=== PATIENT | male | born 1970 ===

== ENCOUNTER 2020-11-04 09:38 | Day surgery (SDC) | payer BC ==
[~2020-11-04] VITALS: Ht 172.7 cm; Wt 82.0 kg
--- NOTE | 2020-11-04 10:09 | NUR ---
11/04/20 David9 Emily Reid 1 TRY RIGHT HAND BLEW 2 TRY RIGHT UPPER FOREARM NO FLASH
[2020-11-10 09:32] LABS: Performing Lab VERACYTE; Test Name FNA
== END 2020-11-04 11:19 | disposition home or self-care (01) ==
LOC: ORSCSDS 09:38
PROVIDERS: Surgery
PROC: 0DBN8ZX Excision of Sigmoid Colon, Via Natural or Artificial Opening Endoscopic, Diagnostic (ICD-10-PCS; principal; 2020-11-04 10:45)
PROC: 0DBK8ZX Excision of Ascending Colon, Via Natural or Artificial Opening Endoscopic, Diagnostic (ICD-10-PCS; principal; 2020-11-04 10:45)
DX: Z12.11 Encounter for screening for malignant neoplasm of colon (principal); D12.2 Benign neoplasm of ascending colon; D12.5 Benign neoplasm of sigmoid colon; E78.00 Pure hypercholesterolemia, unspecified; E78.5 Hyperlipidemia, unspecified
CPT/HCPCS: 88305; J2704; J7120

== ENCOUNTER → 2023-10-29 | Outpatient (CLI) | payer BC | END | disposition home or self-care (01) | LOC: LAB SHORT 07:43 → LAB 07:43 | DX: L72.11 Pilar cyst (principal) | CPT/HCPCS: 88304 ==

== ENCOUNTER 2025-01-02 07:14 | Day surgery (SDC) | payer BC ==
[~2025-01-02] VITALS: Ht 170.2 cm; Wt 79.8 kg
[2025-01-02] MEDS ORDERED: ROSUVASTATIN CAL5 MG (07:30)
[2025-01-02] MEDS ORDERED: CENTRUM SILVER1 EAC2 (07:30)
[2025-01-02] MEDS ORDERED: propofoL 50 ML IV ONE (08:06)
[2025-01-02] MEDS ORDERED: Lactated Ringer's 1,000 ML IV ONE ×2 (08:06→08:21)
[2025-01-02 09:11] VITALS: BP 113/85
== END 2025-01-02 09:26 | disposition home or self-care (01) ==
LOC: ORSCSDS 07:14
PROVIDERS: Surgery
PROC: 0DBL8ZX Excision of Transverse Colon, Via Natural or Artificial Opening Endoscopic, Diagnostic (ICD-10-PCS; principal; 2025-01-02 08:30)
DX: Z12.11 Encounter for screening for malignant neoplasm of colon (principal); Z86.0101 Personal history of adenomatous and serrated colon polyps; D12.3 Benign neoplasm of transverse colon; E78.5 Hyperlipidemia, unspecified; E78.00 Pure hypercholesterolemia, unspecified; Z79.899 Other long term (current) drug therapy
CPT/HCPCS: 88305; J2704; J7120